=== PATIENT | male | born 2000 | race Caucasian/White ===

== ENCOUNTER 2020-12-21 00:51 | Emergency (ER) | payer OTHER ==
[~2020-12-21] VITALS: Ht 182.9 cm; Wt 158.8 kg
[2020-12-21 01:34] LABS: URINE BLOOD 3+ (Negative); URINE GLUCOSE-RANDOM NEGATIVE (Negative); URINE KETONES NEGATIVE (Negative); URINE LEUKOCYTES-REFLEX NEGATIVE (Negative); URINE NITRITE-REFLEX NEGATIVE (Negative); URINE PROTEIN TRACE (Negative); URINE SPECIFIC GRAVITY >= 1.030 (1.005-1.030)
[2020-12-21 01:36] LABS: URINE BILIRUBIN 1+ (Negative); URINE COLOR DARK YELLOW
[2020-12-21 01:37] LABS: URINE CLARITY SL HAZY
[2020-12-21 01:39] LABS: ICTOTEST (BILI CONFIRMATORY) Negative (Negative)
[2020-12-21 01:42] LABS: AMP/METHAMP Negative (Negative); BARBITURATES Negative (Negative); BENZODIAZEPINES Negative (Negative); COCAINE Negative (Negative); METHADONE Negative (Negative); OPIATES Negative (Negative); PCP Negative (Negative); THC Negative (Negative)
[2020-12-21 01:45] LABS: BACTERIA-REFLEX >30 Many /HPF (None Seen); CRYSTALS None Seen /LPF (None Seen); FINE GRANULAR CASTS 0-3 Few /LPF (None Seen); HYALINE CASTS 0-3 Few /LPF (None Seen); MUCUS >6 Heavy strn/LPF (None Seen); SQUAMOUS 0-3 Few /LPF (0-3); URINE RBC >20 Many /HPF (0-2)
[2020-12-21 01:46] LABS: URINE WBC-REFLEX 0-5 Rare /HPF (0-5)
[2020-12-21 03:46] VITALS: BP 148/96
== END 2020-12-21 03:47 | disposition home or self-care (01) ==
LOC: M.ERS 00:51
PROVIDERS: Emergency Medicine
DX: N13.2 Hydronephrosis with renal and ureteral calculous obstruction (principal); Z87.442 Personal history of urinary calculi